=== PATIENT | male | born 1965 | race Asian ===

== ENCOUNTER → 2017-04-05 | Outpatient (CLI) | payer OTHER ==
[~2017-04-05] MED LIST: LOSA50TA37 PO
== END | disposition home or self-care (01) ==
LOC: EMPHLTH 12:36
PROVIDERS: ATTEND Internal Medicine
DX: Z02.1 Encounter for pre-employment examination (principal); R76.11 Nonspecific reaction to tuberculin skin test without active tuberculosis; R91.1 Solitary pulmonary nodule
CPT/HCPCS: 86706; 86735; 86762; 86765; 86787